=== PATIENT | female | born 1955 ===

== ENCOUNTER 2024-05-27 05:36 | Day surgery (SDC) | payer OTHER ==
[2024-05-20 10:55] VITALS: BP 107/67
[2024-05-20 11:04] LABS: INR 1.04; PARTIAL THROMBOPLASTIN TIME 24.6 SECONDS (22.0-34.0); PROTHROMBIN TIME 11.3 SECONDS (9.0-11.5)
[~2024-05-27] VITALS: Ht 167.6 cm; Wt 77.1 kg
[~2024-05-27 05:36] MED LIST: ATACAND32 MG PO; CARVEDILOL25 MG; GLIPIZIDE XL10 MG PO; JANUMET 50-1,01 EACH PO; LANOXIN125 MCG PO; LIPITOR40 MG PO; LIPOFEN150 MG; NITRO-TIME2.5 MG PO; PEPCID40 MG PO; PROCARDIA XL90 MG PO; ZEGERID 40 MG1 EACH PO
[2024-05-27] MEDS ORDERED: DIBUCAINE 30 GM TUBE RECTAL SCH (09:15)
[2024-05-27] MEDS ORDERED: LIDOCAINE HCL 1%/EPINEPHRINE 20ML VIAL IJ SCH (09:15)
[2024-05-27] MEDS ORDERED: HEMOSTATIC MATRIX 1 KIT KIT TOP SCH (09:15)
[2024-05-27] MEDS ORDERED: CEFTRIAXONE SODIUM 2,000 MG VIAL IV SCH (09:15)
[2024-05-27] MEDS ORDERED: BUPIVACAINE HCL/PF 0.25% 30ML VIAL InF SCH (09:15)
[2024-05-27] MEDS ORDERED: METRONIDAZOLE/SODIUM CHLORIDE 500 MG/100 ML PIGGYBACK IV SCH (09:15)
[2024-05-27] MEDS ORDERED: POVIDONE-IODINE 118 ML BOTT TOP SCH (09:15)
[2024-05-27] MEDS ORDERED: TAMSULOSIN HCL 0.4 MG CAP PO ONE (09:30)
[2024-05-27] MEDS ORDERED: OXYCODONE HCL5 MG PO (10:36)
== END 2024-05-27 15:55 | disposition home or self-care (01) ==
LOC: CIR.AMB 05:36
PROVIDERS: ATTEND Surgery
DX: K60.1 Chronic anal fissure (principal); K62.5 Hemorrhage of anus and rectum; K62.89 Other specified diseases of anus and rectum; K59.09 Other constipation; K62.4 Stenosis of anus and rectum; Z88.0 Allergy status to penicillin; I10 Essential (primary) hypertension; E11.9 Type 2 diabetes mellitus without complications